=== PATIENT | female | born 1955 | race Two or more races ===

== ENCOUNTER 2024-11-16 20:48 | Emergency (ER) | payer OTHER ==
[~2024-11-16] VITALS: Ht 149.9 cm; Wt 66.7 kg
[2024-11-16] MEDS: levETIRAcetam 1000 mg/100ml 100 ML IV STA (21:44)
--- NOTE | 2024-11-16 21:47 | DVH ---
Exam: CT HEAD WITHOUT CONTRAST History: Headache Technique: [address] images through the posterior fossa and the supratentorial compart ment were acquired without contrast and imaged using soft tissue and bone algorithms. RADIATION DOSE: DLP 906.59 mGy.cm; CTDI vol 56.55 mGy. Comparison: None Findings: There is no evidence of an acute large vessel infarct, mass effect, or midline shift. Subarachnoid hemorrhage along the bilateral frontal lobes, right temporoparietal lobe, interpeduncula r cistern, ambient cistern, and pontocerebellar cistern. Calcified meningioma near the vertex. There is mild cerebral atrophy. No significant calcification of the carotid siphons. The calvarium, orbits, paranasal sinuses, sella, middle ears, and mastoids are unremarkable. The superficial soft tissues are within normal limits. Impression: 1. Extensive subarachnoid hemorrhage along the bilateral frontal lobes extending into the pontocerebe llar cistern. Critical Result: Intracranial hemorrhage Findings discussed with NINO PALMER at 11/16/2024 09:45 PM, and acknowledged receipt and understand ing of the findings.
--- NOTE | 2024-11-16 21:51 | ED.PDOC ---
HPI (NEURO) HPI Comments 68-year-old female with no pertinent past medical history, presents to ED by ambulance for headache x2 days, associated with nausea. Patient reports that the headache started on Friday night when she was going to sleep. She denies any recent trauma or injury. Patient denies any numbness, tingling, pain, shortness of breath. She states that the pain started suddenly and she rates it as 10/10 in severity. No alleviating or aggravating factors. 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 Family History Family History: Reviewed,noncontributory to illness Social History Smoker: Non-Smoker Alcohol: Denies ETOH Use Drugs: Denies Drug Use Constitutional: denies: chills, diaphoresis, fatigue, fever, malaise, sweats, weakness, others EENTM: denies: blurred vision, double vision, ear bleeding, ear discharge, ear drainage, ear pain, ear ringing, eye pain, eye redness, hearing loss, mouth pain, mouth swelling, nasal discharge, nose bleeding, nose congestion, nose pain, photophobia, tearing, throat pain, throat swelling, voice changes, others Respiratory: denies: cough, hemoptysis, orthopnea, SOB at rest, shortness of breath, SOB with excertion, stridor, wheezing, others Cardiovascular: denies: chest pain, dizzy spells, diaphoresis, Dyspnea on exertion, edema, irregular heart beat, left arm pain, lightheadedness, palpitations, PND, syncope, others Gastrointestinal: reports: nausea; denies: abdomen distended, abdominal pain, blood streaked bowels, constipated, diarrhea, dysphagia, difficulty swallowing, hematemesis, melena, poor appetite, poor fluid intake, rectal bleeding, rectal pain, vomiting, others Genitourinary: denies: abnormal vagina bleeding, burning, dyspareunia, dysuria, flank pain, frequency, hematuria, incontinence, pain, , vagina discharge, urgency, others Neurological: reports: headache; denies: dizziness, fainting, left sided numbness, left sided weakness, numbness, paresthesia, pre-existing deficit, r ight sided numbness, right sided weakness, seizure, speech problems, tingling, tremors, weakness, others Musculoskeletal: denies: back pain, gout, joint pain, joint swelling, muscle pain, muscle stiffness, neck pain, others Integumetry: denies: bruises, change in color, change in hair/nails, dryness, laceration, lesions, lumps, rash, wounds, others Allergic/Immunocompromised: denies: Difficulty Healing, Frequent Infections, Hives, Itching, others Hematologic/Lymphatic: denies: anemia, blood clots, easy bleeding, easy bruising, swollen glands, others Endocrine: denies: excessive hunger, excessive sweating, excessive thirst, excessive urination, flushing, intolerance to cold, intolerance to heat, unexplained weight gain, unexplained weight loss, others Psychiatric: denies: anxiety, bipolar disorder, depression, hopeless, panic disorder, schizophrenia, sleepless, suicidal, others All Other Systems: Reviewed and Negative Physical Exam General Appearance: Moderate Distress, Normal HEENT: Head (Atraumatic. No hematomas or lacerations.), PERRL/EOMI Neck: Full Range of Motion, Non-Tender, Normal, Normal Inspection Respiratory: Chest Non-Tender, Lungs Clear, No Accessory Muscle Use, No Respiratory Distress, Normal Breath Sounds Cardiovascular: No Edema, No JVD, No Murmur, No Gallop, Normal Peripheral Pulses, Regular Rate/Rhythm Breast Exam: Deferred Gastrointestinal: No Organomegaly, Non Tender, No Pulsatile Mass, Normal Bowel Sounds, Soft Genitalia: Deferred Pelvic: Deferred Rectal: Deferred Extremities: No calf tenderness, Normal capillary refill, Normal inspection, Normal range of motion, Non-tender, No pedal edema Musculoskeletal : Apperance: Normal Neurologic: Alert, living manager II-XII nml as Tested, No Motor Deficits, Normal Affect, Normal Mood, No Sensory Deficits, Other (5/5 strength in bilateral upper and lower extremities. Negative pronator drift. Negative facial droop. No neurological deficits.) Cerebellar Function: Normal Reflexes: Normal Skin: Dry, Normal Color, Warm Lymphatic: No Adenopathy Was a procedure done? Was a procedure done?: No Differential Diagnosis (SZ) Headache: Cluster, Migraine, Closed Head Injury, CVA, Epidural Hemorrhage, Intracerebral Hemorrhage, Subarachnoid Hemorrhage, Subdural Hemorrhage X-Ray, Labs, Meds, VS Vital Signs Date Time Temp Pulse Resp B/P (MAP) Pulse Ox O2 Delivery O2 Flow Rate FiO2 11/16/24 20:52 97.8 79 18 167/86 (113) 98 97.8 Current Medications Medications (Trade) Dose Ordered Sig/Rustam Route Start Time Stop Time Status Last Admin Levetiracetam 100 ml @ 400 mls/hr ONCE STAT IV 11/16/24 21:37 11/16/24 21:51 DC 11/16/24 21:44 X-Ray, Labs, Meds, VS Comment CT Head Findings: There is no evidence of an acute large vessel infarct, mass effect, or midline shift. Subarachnoid hemorrhage along the bilateral frontal lobes, right temporoparietal lobe, interpeduncular cistern, ambient cistern, and pontocerebellar cistern. Calcified meningioma near the vertex. There is mild cerebral atrophy. No significant calcification of the carotid siphons. The calvarium, orbits, paranasal sinuses, sella, middle ears, and mastoids are unremarkable. The superficial soft tissues are within normal limits. Impression: 1. Extensive subarachnoid hemorrhage along the bilateral frontal lobes extending into the pontocerebellar cistern. MDM: Patient with history as above presented with headache. History obtained from patient and . Patient was nontoxic, stable, afebrile, in wheelchair, moderate distress. Exam as above. Independently reviewed imaging. CT head showed a subarachnoid hemorrhage. Reviewed external records. All findings were discussed with the patient. Differential diagnosis considered. Overall presentation is consistent with subarachnoid hemorrhage. Low suspicion for CVA, TIA, skull fracture, neurological dysfunction, seizures. Patient was given a loading dose of 1 g of Keppra in the ED. Treated patient's headache and nausea with morphine and Zofran. Spoke to [facility] Dr. Lazcano who graciously accepted the patient for transfer. Patient will be transferred via air. Disposition: Transfer to [facility] This medical document was created using the [employer] dictation system. Although this document has been carefully reviewed, there may still be some phonetic and typographical errors, which are due to imperfections of the [employer]adio program, and do not reflect any compromise in the patient's medical care. Time of 1ST Reevaluation: 22:08 Reevaluation 1ST: Improved Patient Education/Counseling: Diagnosis, Treatment, Prognosis, Need For Follow Up Family Education/Counseling: Diagnosis, Treatment, Prognosis, Need For Follow Up Departure 1 Departure Time of Disposition: 22:08 Impression: Primary Impression: Subarachnoid hemorrhage Disposition: 02 [facility]ORT TERM HOSPITAL Condition: Stable Critical Care Note Critical Care Time?: No Stability Stability form required: Yes Initial call: 21:50 Stable for transfer: To designated facility Comments Patient will be transferred to [facility] for higher level of care. Heart Score Heart Score: Heart Score Response (Comments) Value History N/A 0 EKG N/A 0 Age N/A 0 Risk Factors N/A 0 Troponin N/A 0 Total 0 NINO PALMER [facility] Nov 16, 2024 21:51
[2024-11-16 22:02] VITALS: PULSE 87; RESP 12; O2SAT 95
[2024-11-16] MEDS: MORPHINE SULFATE INJ 2 MG/ml SYRG IV ONE (22:24)
[2024-11-16] MEDS: ONDANSETRON HCL 4 MG/2 ML VIAL IV ONE (22:24)
--- NOTE | 2024-11-16 22:30 | ECG ---
[facility] Test Date: 2024-11-16 Test Time: 22:19:24 Pat Name: SAIGE WHITE Department: ED Room: Gender: F [employer] Operators Supervisor: ED : [id number] Requested By: NINO PALMER Order Number: [id number] Reading MD: Wisam Sullivan Measurements Intervals [place] Rate: 73 P: 70 OR: 174 QRS: 45 QRSD: 80 T: 85 QT: 423 QTc: 467 Interpretive Statements Sinus rhythm Electronically Signed On 11-18-2024 14:05:48 PDT by Wisam Sullivan Please click the below link to view image of tracing.
[2024-11-16 22:43] VITALS: BP 157/72; PULSE 74; RESP 16; TEMP 97.9; O2SAT 94
== END 2024-11-16 21:53 | disposition short-term general hospital (02) ==
LOC: EDBD 20:48 → ER 20:48
DX: I60.9 Nontraumatic subarachnoid hemorrhage, unspecified (principal); Z79.899 Other long term (current) drug therapy
CPT/HCPCS: 70450; 93005; 96365; 96375; 99285; J1953; J2270; J2405